=== PATIENT | male | born 1955 | race Caucasian/White ===

== ENCOUNTER 2024-02-09 01:26 | Emergency (ER) | payer MEDICARE, SELFPAY ==
[2024-02-09 01:32] VITALS: BP 148/99; PULSE 94; RESP 20; TEMP 36.7; O2SAT 95; BMI 29.5
--- NOTE | 2024-02-09 01:45 | ED.EPISTAXIS ---
History of Present Illness General Time Seen by Provider: 01:45 Date Seen: 02/09/24 Chief Complaint: Epistaxis/Nosebleed Stated Complaint: nosebleed Time Seen by Provider: 02/09/24 01:45 Source: patient, RN notes reviewed and old records reviewed Mode of arrival: ambulatory Limitations: no limitations History of Present Illness HPI Narrative: 68-year-old male who comes in today with nose bleed. Started around 90 minutes prior to coming the emergency department, no known trauma, no history of similar nose bleeds and no blood thinners. Related Data Home Medications ?Medication ?Instructions ?Recorded ?Confirmed No Known Home Medications 02/09/24 02/09/24 Allergies Allergy/AdvReac Type Severity Reaction Status Date / Time No Known Drug Allergies Allergy Verified 02/09/24 01:34 Exam Narrative: Exam Narrative: General: well nourished , NAD Head: Atraumatic and normocephalic ENT: External ears normal, blood from the right near. Eyes: Conjunctiva clear, pupils are equal reactive, external ocular motions are intact Neck: Full spontaneous range of motion of the neck Lungs: No respiratory distress Musculoskeletal: No tenderness or deformity Neurologic: No gross focal neurologic deficits Skin: No rashes Psych: Mood and affect are appropriate Const: Vital Signs, click to edit/add: Vital Signs - 24 hr 02/09/24 01:32 Temperature 98.1 F Pulse Rate [Right Pulse Oximeter] 94 Respiratory Rate 20 Blood Pressure [Ri ght Upper Arm] 148/99 H Pulse Oximetry 95 Oxygen Delivery Me thod Room Air Course Course ED Course: Patient seen examined, presents with a nose bleed. No known trauma. Patient with a Kleenex in the left nostril, when this is removed, large clot was removed along with slow oozing blood. Epistaxis control- left nostril. Risks and benefits discussed with the patient, verbal consent was obtained. Gauze soaked with lidocaine 1% with epinephrine and Afrin was placed in the nostril for 10 minutes. This was removed, no active bleeding but on exploration of areas with fresh clot with a Q-tip, a couple areas of punctate bleeding both on the = nasal septum and also the floor of the nostril seen, silver nitrate cautery was done. Bleeding was controlled, a 7.5 Rhino-rocket was placed. Patient tolerated this well and is stable for discharge on Augmentin. Vital Signs Vital signs: Initial Vital Signs Temperature 98.1 F 02/09/24 01:32 Temperature Source Temporal Artery Scan 02/09/24 01:32 Pulse Rate 94 02/09/24 01:32 Respiratory Rate 20 02/09/24 01:32 Blood Pressure 148/99 H 02/09/24 01:32 Blood Pressure Mean 115 H 02/09/24 01:32 Blood Pressure Position Sitting 02/09/24 01:32 Pulse Oximetry 95 02/09/24 01:32 Oxygen Delivery Method Room Air 02/09/24 01:32 Vital Signs Temperature 98.1 F 02/09/24 01:32 Pulse Rate 94 02/09/24 01:32 Respiratory Rate 20 02/09/24 01:32 Blood Pressure 148/99 H 02/09/24 01:32 Pulse Oximetry 95 02/09/24 01:32 Oxygen Delivery Method Room Air 02/09/24 01:32 Temperature 98.1 F 02/09/24 01:32 Pulse Rate 94 02/09/24 01:32 Respiratory Rate 20 02/09/24 01:32 Blood Pressure 148/99 H 02/09/24 01:32 Pulse Oximetry 95 02/09/24 01:32 Oxygen Delivery Method Room Air 02/09/24 01:32 Medications Administered Medications: Discontinued Medications Generic Name Dose Route Start Last Admin Trade Name Margie PRN Reason Stop Dose Admin Lidocaine/Epinephrine 20 ml 02/09/24 01:34 02/09/24 01:58 Lidocaine 1%-Epi 1:100,000 20 Ml INFILTRATI 02/09/24 01:35 20 ml ONCE ONE Administration Oxymetazoline HCl 1 each 02/09/24 01:34 02/09/24 01:58 Oxymetazoline (Afrin) [place]ak TOPICAL 02/09/24 01:35 1 each ONCE ONE Administration Discharge Plan Discharge Clinical Impression: Epistaxis Patient Disposition: Home, Self-Care Condition: Improved Instructions: Nosebleed (ED) Additional Instructions: Leave nasal packing in place You may have a small amount of bleeding or pinkish discharge around the packing. If this occurs, you can add a little more air to the balloon. If the packing is intolerable at home, remove all the air either with the syringe or by cutting the tube going into the packing and gently pull the packing out in one smooth motion. Follow-up with ENT at the end of this week, call [phone] ([place]) or [phone] ([place]) for an appointment Activity Level: Activity as Tolerated Discharge Diet: Regular Prescriptions: No Action No Known Home Medications Follow Up/Referrals: Home Tate MD [Referring] - Stand Alone Forms: [employer] Info Instructions
[2024-02-09] MEDS: OXYMETAZOLINE (AFRIN) SOAK 1 EACH TOPICAL (01:58)
--- OUTSIDE RECORDS SUMMARY | 2024-02-09 02:07 | XMS_ITS | Clinical Summary ---
Author Organization [email or web address] Address [place], [place] [address] Care Team Providers Care Freight Clerk Name Role Phone Pcp, No Primary Care Provider Unavailabl e Allergies No known active allergies Medications No known medications Active Problems Problem Noted Date Diagnosed Date Borderline blood pressure 06/27/2014 Cellulitis of forearm, right 06/24/2014 Family History Medical History Relation Name Comments Hypertension Father Other Father afib Hypertension Mother Other Mother macular degener ation Relation Name Status Comments Father Mother Social History Tobacco Use Types Packs/Day Years Used Date Smoking Tobacco: Every Day Cigarettes Smokeless Tobacco: Never Tobacco Cessation:Ready to Q uit: Yes; Counseling Given: Yes Comments:0-5 cigarettes per day Alcohol Use Standard Drinks/Week Comments Not Asked 0 (1 standard drink = 0.6 oz pur e alcohol) Sex and Gender Information Value Date Recorded Sex Assigned at Not on file Gender Identity Not on file Sexual Orientation Not on file Obstetrics History Last Filed Vital Signs Vital Sign Reading Time Taken Comments Blood Pressure 146/89 12/20/2016 11:05 AM CDT Pulse 85 12/20/2016 11:05 AM CDT Temperature 37.1 ??C (98.7 ??F) 06/27/2014 3:53 PM CS T Respiratory Rate - - Oxygen Saturation 94% 12/20/2016 11:05 AM CDT Inhaled Oxygen Concentration - - Weight 84.9 kg (187 lb 3.2 oz) 12/20/2016 11:05 AM CDT Height 170 cm (5' 6.93) 12/20/2016 11:05 AM CDT Body Mass Index 29.38 12/20/2016 11:05 AM CDT Plan of Treatment Health Maintenance Due Date Last Done Comments Tdap 1965 Hepatitis C screening for age 18-79 1972 Tetanus booster 1974 Colonoscopy through age 75 12/20/1999 Lipids for age 45-75 12/20/1999 Zoster (shingles) series for age 50+ (1 of 2) 12/20/19 05 BMI (ht and wt on same day) for age 18+ 12/20/2017 0 12/20/2016 Depression screening for age 12+ 12/20/2017 12/21/19 17 Pneumococcal series for age 65+ (1 of 1 - PCV) 020 COVID-19 vaccine series (1 - 2022-24 season) 3 Influenza for age 65+ 03/21/2024 Care Teams Freight Clerk Relationship Specialty Start Date End Date Pcp, No . PCP - General 06/24/14
[2024-02-09 02:40] VITALS: BP 135/87; PULSE 89; RESP 20; TEMP 36.7; O2SAT 95
[2024-02-09 02:41] VITALS: BP 135/87; PULSE 89; RESP 20; TEMP 36.7
== END 2024-02-09 03:00 | disposition home or self-care (01) ==
PROVIDERS: Emergency Provider Family Medicine
DX: R04.0 Epistaxis (principal)
CPT/HCPCS: 30901; 99283; 99284